=== PATIENT | male | born 1965 | race Two or more races ===

== ENCOUNTER 2022-05-25 06:36 | Emergency (ER) | payer OTHER ==
[~2022-05-25] VITALS: Ht 182.9 cm; Wt 114.8 kg
[2022-05-26] MEDS ORDERED: AMLODIPINE BESYL5 MG PO (08:38)
[2022-05-26] MEDS ORDERED: LISINOPRIL40 MG PO (08:38)
[2022-05-26] MEDS ORDERED: SILDENAFIL CITR50 MG (13:56)
== END 2022-05-25 10:03 | disposition home or self-care (01) ==
LOC: ER 06:36
DX: K64.5 Perianal venous thrombosis (principal); K64.8 Other hemorrhoids

== ENCOUNTER 2022-05-26 08:20 | Inpatient (IN) | payer OTHER ==
[~2022-05-26] VITALS: Ht 182.9 cm; Wt 114.8 kg
[2022-05-26] MEDS ORDERED: AMLODIPINE BESYL5 MG PO (08:38)
[2022-05-26] MEDS ORDERED: LISINOPRIL40 MG PO (08:38)
--- NOTE | 2022-05-26 08:40 | NUR ---
PTE ALERTA Y ORIENTADO X3 EN COMPANIA DE FAMILIAR. PTE REFIERE HEMOROIDES.
[2022-05-26] MEDS ORDERED: SILDENAFIL CITR50 MG (13:56)
[2022-05-27] MEDS ORDERED: PERCOCET 5-3251 EACH PO (08:28)
[2022-05-27] MEDS ORDERED: MIRALAX17 GM PO (08:28)
[2022-05-27] MEDS ORDERED: NEURONTIN300 MG PO (08:28)
[2022-05-27] MEDS ORDERED: DERMOPLAST PAIN78 GM TOP (08:28)
== END 2022-05-27 14:00 | disposition home or self-care (01) | DRG 349 ==
LOC: ER 08:20 → SURH 12:03
PROVIDERS: ADMIT Surgery; ATTEND Surgery
PROC: 3E0T3BZ Introduction of Anesthetic Agent into Peripheral Nerves and Plexi, Percutaneous Approach (ICD-10-PCS; 2022-05-26)
PROC: 06BY0ZC Excision of Hemorrhoidal Plexus, Open Approach (ICD-10-PCS; principal; 2022-05-26 14:30)
DX: K64.5 Perianal venous thrombosis (principal); K64.8 Other hemorrhoids; Z20.822 Contact with and (suspected) exposure to COVID-19

== ENCOUNTER 2023-03-08 20:39 | Emergency (ER) | payer OTHER ==
[~2023-03-08] VITALS: Ht 182.9 cm; Wt 115.7 kg
[~2023-03-08 20:39] MED LIST: AMLODIPINE BESYL5 MG PO; DERMOPLAST PAIN78 GM TOP; LISINOPRIL40 MG PO; MIRALAX17 GM PO; NEURONTIN300 MG PO; PERCOCET 5-3251 EACH PO; SILDENAFIL CITR50 MG
[2023-03-08 22:06] LABS: HEMATOCRIT 41.6 % (39.0-48.0); HEMOGLOBIN 14.4 g/dL (13-16.00); MEAN CELL VOLUME 89.5 fL (80.0-100.00); MEAN CORPUSCULAR HEMOGLOBIN 31.1 pg (27.00-32.0); MEAN CORPUSCULAR HGB CONC 34.7 g/dl (32.0-36.0); PLATELET COUNT 283 K/uL (150-450); RED BLOOD COUNT 4.64 M/uL (4.00-6.00); RED CELL DISTRIBUTION WIDTH 14.4 % (11.5-14.5)
[2023-03-08 22:10] LABS: ERYTHROCYTE SEDIMENTATION RATE 14 mm/hr
[2023-03-08 22:30] LABS: CALCIUM 9.2 mg/dL (8.5-10.1); CREATININE SERUM 0.97 mg/dL (0.70-1.30); GFR 79.77
[2023-03-08 22:31] LABS: POTASSIUM 4.48 mEq/L (3.5-5.1)
[2023-03-08 23:08] LABS: PH,URINE 5.5 (5.0-8.0); URINE APPEARANCE Clear; URINE BILIRRUBIN Negative (NEGATIVE); URINE BLOOD Negative; URINE COLOR Yellow; URINE GLUCOSE Negative (NEGATIVE); URINE LEUKOCYTE Negative; URINE NITRATE Negative; URINE PROTEIN Negative (NEGATIVE); URINE UROBILINOGEN 0.2 E.U./dl
[2023-03-08 23:12] LABS: URINE RBC 2.2 uL (0.0-20.8); URINE WBC 3.9 uL (0.0-23.2)
[2023-03-08 23:39] LABS: URINE EPITHELIAL CELLS 0.7 uL (0.0-38.8)
== END 2023-03-08 23:56 | disposition home or self-care (01) ==
LOC: ER 20:39
PROVIDERS: General Practice
DX: R10.32 Left lower quadrant pain (principal)